=== PATIENT | male | born 1995 | race African-American/Black ===

== ENCOUNTER 2019-05-26 03:58 | Emergency (ER) | payer BC ==
[~2019-05-26] VITALS: Ht 175.3 cm; Wt 70.5 kg
[2019-05-26 04:56] LABS: ARTERIAL BLD GAS O2 SATURATION 98.5 % (92-100); ARTERIAL BLD GAS TCO2 CT 25.9; ARTERIAL BLOOD GAS BASE EXCESS 0.7 (-2-2); ARTERIAL BLOOD GAS HCO3 24.8 meq/L (22-26); ARTERIAL BLOOD GAS PO2 112.2 mmHg (80-100); ARTERIAL BLOOD GAS pH 7.43 (7.35-7.45)
[2019-05-26] MEDS ORDERED: ATIVAN 1MG T1 MG/TAB PO (05:35)
[2019-05-26 05:50] VITALS: BP 114/68; PULSE 72; TEMP 97.3
== END 2019-05-26 05:50 | disposition home or self-care (01) ==
LOC: COL.ER 03:58
PROVIDERS: Emergency Medicine
DX: F41.9 Anxiety disorder, unspecified (principal)